=== PATIENT | male | born 1965 | race Caucasian/White ===

== ENCOUNTER 2019-05-21 10:06 | Outpatient (CLI) | payer BC ==
--- NOTE | 2019-05-21 10:37 | RAD ---
EXAM: 5 views of the cervical spine HISTORY: Neck stiffness COMPARISON: None FINDINGS: AP, lateral, flexion/extension, and open mouth odontoid views of the cervical spine shows t he patient is status post anterior fusion of C6 and C7 without perihardware lucency or fracture. The intervening disc spacer is in good position. There is grade 1 retrolisthesis of C5 on C6 secondar y to degenerative change. Joint space narrowing and osteophytes are seen at C5/6. No prevertebral soft tissue swelling is seen. Alignment is unchanged with flexion and extension. IMPRESSION: Postsurgical changes and degenerative changes of the cervical spine with unchanged alignm ent with bending
== END 2019-05-21 10:07 | disposition home or self-care (01) ==
LOC: TBSIIMAG 10:06
PROVIDERS: ATTEND Neurological Surgery
DX: M50.30 Other cervical disc degeneration, unspecified cervical region (principal); M47.812 Spondylosis without myelopathy or radiculopathy, cervical region; Z98.1 Arthrodesis status
CPT/HCPCS: 72050

== ENCOUNTER 2022-10-28 15:57 | Outpatient (CLI) | payer BC | END 2022-10-28 15:58 | disposition home or self-care (01) | LOC: TBSIIMAG 15:57 | PROVIDERS: ATTEND Neurological Surgery | DX: M50.30 Other cervical disc degeneration, unspecified cervical region (principal); M47.812 Spondylosis without myelopathy or radiculopathy, cervical region; Z98.890 Other specified postprocedural states | CPT/HCPCS: 72040 ==